=== PATIENT | female | born 1930 | race Asian ===

== ENCOUNTER 2016-12-30 16:35 | Emergency (ER) | payer OTHER ==
[~2016-12-30] VITALS: Ht 149.9 cm; Wt 44.3 kg
[2016-12-30] MEDS ORDERED: SODIUM CHLORIDE 0.9% 500ML 500 ML IV STA ×3 (16:37→21:55)
[2016-12-30] MEDS ORDERED: ONDANSETRON INJ 2 MG/ML 2 ML VIAL IV STA (16:38)
[2016-12-30] MEDS ORDERED: MoRPHine SULFATE 2 MG/ML CARP IV STA (16:38)
[2016-12-30 16:40] VITALS: TEMP 36.4; O2SAT 96; Ht 149.9 cm; Wt 44.3 kg
--- NOTE | 2016-12-30 16:43 | EMERGENCY ROOM VISIT NOTE ---
History Report prepared by Reilly: Tatiana Araya Under the Supervision of: Dr. Wallace Almeida M.D. First contact with patient: 16:20 Chief Complaint: ABDOMINAL PAIN Stated Complaint: N History of Present Illness The patient is a 86 year old female who presents to the Emergency Room with complaints of persistent abdominal pain since 1529 this afternoon. The patient was referred to the surgical center for a liver biopsy today by Dr. Chelsea Hollis, [facility]. The biopsy was scheduled for 1529. After she got back from the procedure, she complained to the surgical center staff of lower abdominal pain, rating her discomfort as an 8/10 in severity. She was also diaphoretic and hypertensive. The only medication the patient received before the procedure was local Lidocaine. Nursing staff reports she has a history of diabetes and does not take daily blood thinners. Source of History: patient, family, nursing staff Onset: 1529 today Position: abdomen Symptom Intensity: 8/10 Timing: other (persistent) Associated Symptoms: + diaphoresis Review of Systems See HPI for pertinent positives & negatives. A total of 10 systems reviewed and were otherwise negative. Past Medical & Surgical Medical Problems: (1) Diabetes mellitus Social History Smoking Status: Never Smoker Alcohol Use: none Drug Use: none Marital Status: Housing Status: lives with family Occupation Status: retired Current/Historical Medications Scheduled Levothyroxine Sodium (Synthroid), 25 MCG PO QAM Allergies Coded Allergies: No Known Allergies (Unverified , NONE, 12/30/16) Physical Exam Vital Signs Date Time Temp Pulse Resp B/P (MAP) Pulse Ox O2 Delivery O2 Flow Rate FiO2 12/31/16 00:15 91 21 129/65 100 12/30/16 22:36 90 20 129/62 100 Nasal Cannula 2.0 12/30/16 21:58 92 20 129/63 100 Room Air 12/30/16 21:31 90 20 126/59 99 Room Air 12/30/16 20:58 88 20 108/57 99 Nasal Cannula 3.0 12/30/16 20:29 90 20 117/53 100 Nasal Cannula 3.0 12/30/16 20:02 89 20 107/50 96 Nasal Cannula 3.0 12/30/16 19:34 84 20 112/53 100 Room Air 12/30/16 18:13 92 20 122/60 99 Nasal Cannula 3.0 12/30/16 17:57 84 18 144/62 100 Room Air 12/30/16 17:05 95 18 140/66 96 Nasal Cannula 3.0 12/30/16 16:40 36.4 90 20 108/56 89 Room Air 12/30/16 16:40 96 Nasal Cannula 12/30/16 16:40 90 Physical Exam GENERAL: Patient is a pale and cachectic in appearance 86 year old female. HEAD: Normocephalic atraumatic EYES: Ocular movements intact pupils equal and react to light OROPHARYNX mucous membranes are moist no exudates present no erythema or edema present NECK: Supple no nuchal rigidity CHEST: Good equal expansion LUNGS: Clear and equal to auscultation CARDIAC: Normal S1 and S2 ABDOMEN: Soft, diffusely tender, no guarding BACK: No CVA tenderness EXTREMITIES: No pain upon palpation normal muscle strength in all groups no clubbing cyanosis or edema NEURO: Patient is following commands is answering questions appropriately. Alert and oriented x3 Cranial Nerves 2-12 grossly intact Medical Decision & Procedures ER Provider Diagnostic Interpretation: Radiology results as stated below per my review and radiologist interpretation: ABD/PELVIS IV CONTRAST ONLY CT DOSE: 261.22 mGy.cm HISTORY: Pain Pt c/o diffuse abd pain s/p biopsy TECHNIQUE: Multiaxial CT images of the abdomen and pelvis were performed following the use of intravenous contrast. A dose lowering technique was utilized adhering to the principles of ALARA. COMPARISON STUDY: 12/08/2016 outside institution FINDINGS: Basilar pulmonary nodularity considered stable. Mild bibasilar atelectatic change. Diffuse hepatic metastatic disease. This is similar as compared to the prior study. Small linear focus of diminished density resembling a small focal laceration lateral right hepatic lobe transaxial image 21. This is not identified on the prior study and potentially relates to the prior biopsy site. The graft moderate amount of blood surrounding the liver with blood extending to the right paracolic gutter, mesentery, with significant fluid and/or blood within the pelvic cul-de-sac. This presumably represents active hemorrhage from the biopsy site. Bowel pattern again is nonobstructive. Bladder is midline. IMPRESSION: 1. Interval development of right perihepatic ascites/blood postbiopsy with moderate blood/fluid within the pelvic cul-de-sac and mid mesentery. 2. This change potentially is associated with a small linear capsular defect transaxial image 22 and 21 of the peripheral right hepatic lobe. This appears to relate to a focal hepatic laceration. 3. It is possible this linear defect which was not present on the prior study is related to the biopsy procedure. 4. This report was phoned to the emergency room 5. Diffuse metastatic disease unchanged The above report was generated using voice recognition software. It may contain grammatical, syntax or spelling errors. Electronically signed by: Shaila Morel M.D. 12/30/2016 5:14 PM CHEST ONE VIEW PORTABLE CLINICAL HISTORY: Sepsis dyspnea COMPARISON STUDY: No previous studies for comparison. FINDINGS: Mild emphysematous change. Minimal apical fibrotic change considered chronic. No focal infiltrate. No evidence pneumothorax. IMPRESSION: Mild emphysematous change. No acute process. The above report was generated using voice recognition software. It may contain grammatical, syntax or spelling errors. Electronically signed by: Shaila Morel M.D. 12/30/2016 5:22 PM Laboratory Results 12/30/16 22:25 Red Blood Count 2.91, Mean Corpuscular Volume 93.5, Mean Corpuscular Hemoglobin 29.6, Mean Corpuscular Hemoglobin Concent 31.6, Mean Platelet Volume 9.0, Neutrophils (%) (Auto) 71.9, Lymphocytes (%) (Auto) 20.0, Monocytes (%) (Auto) 7.1, Eosinophils (%) (Auto) 0.4, Basophils (%) (Auto) 0.4, Neutrophils # (Auto) 4.08, Lymphocytes # (Auto) 1.13, Monocytes # (Auto) 0.40, Eosinophils # (Auto) 0.02, Basophils # (Auto) 0.02 12/30/16 17:32 Test 12/30/16 16:52 12/30/16 17:32 12/30/16 22:25 12/30/16 22:30 Bedside Lactic Acid Venous 6.41 mmol/L (0.90-1.70) Prothrombin Time 11.5 SECONDS (9.0-12.0) Prothromb Time International Ratio 1.1 (0.9-1.1) Activated Partial Thromboplast Time 26.2 SECONDS (21.0-31.0) Partial Thromboplastin Ratio 1.0 Est Creatinine Clear Calc Drug Dose 33.6 ml/min Estimated GFR () 72.9 Estimated GFR (Non- 62.9 BUN/Creatinine Ratio 18.2 (10-20) Lactic Acid Level 5.3 mmol/L (0.4-2.0) Calcium Level 8.6 mg/dl (8.5-10.1) Total Bilirubin 0.5 mg/dl (0.2-1) Aspartate Amino Transf (AST/SGOT) 69 U/L (15-37) Alanine Aminotransferase (ALT/SGPT) 18 U/L (12-78) Alkaline Phosphatase 204 U/L (45-117) Total Creatine Kinase 73 U/L (26-192) Creatine Kinase MB 0.8 ng/ml (0.5-3.6) Creatine Kinase MB Ratio 1.1 (0-3.0) Troponin I 0.015 ng/ml (0-0.045) Total Protein 6.5 gm/dl (6.4-8.2) Albumin 2.4 gm/dl (3.4-5.0) Globulin 4.1 gm/dl (2.5-4.0) Albumin/Globulin Ratio 0.6 (0.9-2) White Blood Count 5.66 K/uL (4.8-10.8) Red Blood Count 2.91 M/uL (4.2-5.4) Hemoglobin 8.6 g/dL (12.0-16.0) Hematocrit 27.2 % (37-47) Mean Corpuscular Volume 93.5 fL (80-100) Mean Corpuscular Hemoglobin 29.6 pg (25-34) Mean Corpuscular Hemoglobin Concent 31.6 g/dl (32-36) Platelet Count 268 K/uL (130-400) Mean Platelet Volume 9.0 fL (7.4-10.4) Neutrophils (%) (Auto) 71.9 % Lymphocytes (%) (Auto) 20.0 % Monocytes (%) (Auto) 7.1 % Eosinophils (%) (Auto) 0.4 % Basophils (%) (Auto) 0.4 % Neutrophils # (Auto) 4.08 K/uL (1.4-6.5) Lymphocytes # (Auto) 1.13 K/uL (1.2-3.4) Monocytes # (Auto) 0.40 K/uL (0.11-0.59) Eosinophils # (Auto) 0.02 K/uL (0-0.5) Basophils # (Auto) 0.02 K/uL (0-0.2) RDW Standard Deviation 51.9 fL (36.4-46.3) RDW Coefficient of Variation 15.3 % (11.5-14.5) Immature Granulocyte % (Auto) 0.2 % Immature Granulocyte # (Auto) 0.01 K/uL (0.00-0.02) Red Blood Cell Morphology Unremarkable Bedside Hemoglobin 8.8 g/dl (12.0-16.0) Bedside Hematocrit 26 % (37-47) Bedside Sodium 136 mEq/L (135-144) Bedside Potassium 4.9 mEq/L (3.3-5.0) Bedside Chloride 102 mEq/L (101-112) Bedside Total CO2 22 mEq/l (24-31) Anion Gap 17.0 mmol/L (16-25) Bedside Blood Urea Nitrogen 14 mg/dl (7-18) Bedside Creatinine 0.7 mg/dl (0.6-1.3) Bedside Glucose (other) 87 mg/dl (70-99) Bedside Ionized Calcium ([place]) 1.16 mmol/l (1.12-1.32) Labs reviewed by ED physician. Medications Administered Medications (Trade) Dose Ordered Sig/Romie Route Start Time Stop Time Status Last Admin Dose Admin Sodium Chloride 500 ml @ 999 mls/hr Q31M STAT IV 12/30/16 16:37 12/30/16 17:07 DC 12/30/16 17:07 999 MLS/HR Sodium Chloride 500 ml @ 999 mls/hr Q31M STAT IV 12/30/16 20:53 12/30/16 21:23 DC 12/30/16 20:55 999 MLS/HR Sodium Chloride 500 ml @ 999 mls/hr Q31M STAT IV 12/30/16 21:55 12/30/16 22:25 DC 12/30/16 22:36 999 MLS/HR Sodium Chloride 1,000 ml @ 125 mls/hr Q8H STAT IV 12/30/16 22:19 12/31/16 02:51 DC 12/30/16 22:36 125 MLS/HR ECG Indication: abdominal pain Rate (beats per minute): 89 Rhythm: normal sinus Findings: no acute ischemic change, no ectopy ED Course 1634: Past medical records reviewed. The patient was evaluated in room A12. A complete history and physical examination was performed. 1637: NSS 500 ml @ 999 mls/hr IV. 1638: Zofran 4 mg IV, Morphine Sulfate 2 mg IV. 1640: A bedside ultrasound shows free fluid in the abdomen. 1712: I discussed the patients case with Dr. Morel, [facility] Radiology. There is a 1 cm laceration to the liver seen on CT scan and free fluid in the abdomen. 1713: I updated the patients family on her current condition and radiology results. 1715: I discussed the patients case with Dr. Noe, [facility] General Surgery. He recommends the patient be further evaluated at a tertiary care center. 1716: I spoke with the patients family. I discussed the need to transfer her to a tertiary care center for further evaluation and management. They are requesting a few minutes to decide where to have the patient evaluated. 1724: I spoke to the patients family again. They have chosen [facility] for further treatment and evaluation. 1744: The ER financial secretary informed me [facility] does not have interventional radiology which is needed to handle the patients case. I will discuss other options with the patients family. 1747: The patients family has decided on [facility]. 1750: The patients family has changed their mind to [facility]. 1752: The ED Dermatology Sales Representative informed me [facility] may be able to care for the patient. 1754: I discussed the patients case with Dr. Stover, Trauma Surgery at [facility]. He states because she is stable, he recommends she be evaluated by the hospital medicine team and he will consult on her case. 1755: Her BP is 140/66. Pulse is 85. 1801: I discussed the patients case with Dr. Quinn, [facility] Hospitalist. The patient has been accepted as a transfer via helicopter and will be further evaluated. 1812: I have updated the patients family on her acceptance at [facility]. They are aware of the plan and agreeable to transfer. 1845: The ED financial secretary informed me [facility] does not currently have a bed available for the patient. They will try to rearrange some other patients to find her a bed. 2213: I discussed the patients case with Dr. Quinn, [facility] Trauma Surgery. There is a bed available now in the ICU. 2320: I updated the patients family. I discussed my recommendation we fly the patient to [facility]. Her family has declined helicopter transport at this time. 2330: The ED financial secretary informed me [facility] will be here in 45 minutes to filler picker the patient. Medical Decision Prior records/ancillary studies reviewed. Triage Nursing notes reviewed. The patient's history was concerning for traumatic injury Differential diagnosis: Etiologies such as fracture, dislocation, intra-abdominal, pneumothorax, intrathoracic , intracranial, neurologic, as well as other traumatic pathologies were entertained. This is an 86-year-old female who presents emergency department complaining of abdominal pain and hypotension after procedure. A FAST exam was performed in the emergency department which was concerning for intra-abdominal fluid. Based on this finding the patient was immediate was sent for CAT scan. CAT scan is concerning for a laceration to the liver as well as intra-abdominal fluid. The patient's hemoglobin is actually stable however type and screen was obtained. I discussed the case with surgery who recommended that the patient be transferred to a tertiary care center. I recommended [facility] to the family however they wanted to go to [facility] after much family debate. I first contacted [facility] who was not willing to accept the patient. I then again recommended [facility] to the family however after further family discussion the family wished to go to [facility]. While we're waiting for call back from [facility], [facility] called back and the trauma surgeon readily accepted the patient. I then discussed the patient with the ICU and came back and relayed this to the family. I again stressed however that there were no beds available as the patient may in the emergency department for some time. For this reason the patient was frequently reassessed in the emergency department for close to 6 hours. At the 6 hour shaila a repeat hemoglobin was drawn. I believe that this is within normal limits after the patient received multiple boluses of fluid. After sometime [facility] did acquire a bed and I recommended that the patient be flown down however the patient is again refusing. Medication Reconcilliation Current Medication List: was personally reviewed by me Blood Pressure Screening Patient's blood pressure: Low blood pressure Low blood pressure is believed to be situational. Consults Time Called: 1707 Consulting Physician: Dr. Noe, [facility] Surgery Returned Call: 1715 I discussed the patients case with Dr. Noe, [facility] General Surgery. He recommends the patient be further evaluated at a tertiary care center. Additional Consults: Time Called: 1800 Consulted Physician: Dr. Quinn, [facility] Hospitalist Returned Call: 1801 Additional Comments: I discussed the patients case with Dr. Quinn, [facility] Hospitalist. The patient has been accepted as a transfer via helicopter and will be further evaluated. Time Called: 1750 Consulted Physician: Dr. Stover, [facility] Trauma Surgery Returned Call: 1754 Additional Comments: I discussed the patients case with Dr. Stover, Trauma Surgery at [facility]. He states because she is stable, he recommends she be evaluated by the hospital medicine team and he will consult on her case. Impression Primary Impression: Intra-abdominal fluid Critical Care I have personally spent greater than 90 minutes of critical care time in the direct management of this patient. This includes bedside care, interpretation of diagnostic studies, and testing, discussion with consultants, patient, and family members, and other required patient management activities. This 90 minutes is in excess of all separately billable procedures. Scribe Attestation The scribe's documentation has been prepared under my direction and personally reviewed by me in its entirety. I confirm that the note above accurately reflects all work, treatment, procedures, and medical decision making performed by me. Departure Information Dispostion Transfer Acute Care Facility (The patient has been accepted as a transfer via helicopter to [facility]) Referrals Chelsea Hollis M.D. (PCP) Patient Instructions My [facility] Problem Qualifiers Primary Impression: Intra-abdominal fluid Ascites type: other type Qualified Codes: R18.8 - Other ascites
[2016-12-30] MEDS ORDERED: OPTIRAY 320 IV PRN (16:45)
[2016-12-30 17:04] LABS: ISTAT CREATININE 0.9 mg/dl (0.6-1.3); ISTAT HEMOGLOBIN 10.2 g/dl (12.0-16.0); ISTAT IONIZED CALCIUM 1.19 mmol/l (1.12-1.32)
--- NOTE | 2016-12-30 17:15 | DIAGNOSTIC IMAGING REPORT ---
ABD/PELVIS IV CONTRAST ONLY CT DOSE: 261.22 mGy.cm HISTORY: Pain Pt c/o diffuse abd pain s/p biopsy TECHNIQUE: Multiaxial CT images of the abdomen and pelvis were performed following the use of intravenous contrast. A dose lowering technique was utilized adhering to the principles of ALARA. COMPARISON STUDY: 12/08/2016 outside institution FINDINGS: Basilar pulmonary nodularity considered stable. Mild bibasilar atelectatic change. Diffuse hepatic metastatic disease. This is similar as compared to the prior study. Small linear focus of diminished density resembling a small focal laceration lateral right hepatic lobe transaxial image 21. This is not identified on the prior study and potentially relates to the prior biopsy site. The graft moderate amount of blood surrounding the liver with blood extending to the right paracolic gutter, mesentery, with significant fluid and/or blood within the pelvic cul-de-sac. This presumably represents active hemorrhage from the biopsy site. Bowel pattern again is nonobstructive. Bladder is midline. IMPRESSION: 1. Interval development of right perihepatic ascites/blood postbiopsy with moderate blood/fluid within the pelvic cul-de-sac and mid mesentery. 2. This change potentially is associated with a small linear capsular defect transaxial image 22 and 21 of the peripheral right hepatic lobe. This appears to relate to a focal hepatic laceration. 3. It is possible this linear defect which was not present on the prior study is related to the biopsy procedure. 4. This report was phoned to the emergency room 4. Diffuse metastatic disease unchanged The above report was generated using voice recognition software. It may contain grammatical, syntax or spelling errors. Electronically signed by: Jimmy Morel M.D. 12/30/2016 5:14 PM Dictated Date/Time: 12/30/2016 5:00 PM
--- NOTE | 2016-12-30 17:23 | DIAGNOSTIC IMAGING REPORT ---
CHEST ONE VIEW PORTABLE CLINICAL HISTORY: Sepsis dyspnea COMPARISON STUDY: No previous studies for comparison. FINDINGS: Mild emphysematous change. Minimal apical fibrotic change considered chronic. No focal infiltrate. No evidence pneumothorax. IMPRESSION: Mild emphysematous change. No acute process. The above report was generated using voice recognition software. It may contain grammatical, syntax or spelling errors. Electronically signed by: Jimmy Morel M.D. 12/30/2016 5:22 PM Dictated Date/Time: 12/30/2016 5:21 PM
[2016-12-30 17:43] LABS: BASO % 0.4 %; BASO ABS # 0.02 K/uL (0-0.2); COMPLETE YES; EOS % 1.6 %; HEMATOCRIT 29.2 % (37-47); IG% 0.4 %; LYMPH % 19.5 %; MEAN CELL VOLUME 93.9 fL (80-100); MEAN CORPUSCULAR HEMOGLOBIN 30.2 pg (25-34); MEAN CORPUSCULAR HGB CONC 32.2 g/dl (32-36); NEUT % 71.1 %; PLATELET COUNT 284 K/uL (130-400); RED BLOOD COUNT 3.11 M/uL (4.2-5.4); WHITE BLOOD COUNT 5.12 K/uL (4.8-10.8)
[2016-12-30 17:55] LABS: INR 1.1 (0.9-1.1); PROTHROMBIN TIME (PATIENT) 11.5 SECONDS (9.0-12.0)
[2016-12-30] MEDS ORDERED: SYN25 PO (18:05)
[2016-12-30 18:10] LABS: BUN/CREATININE RATIO 18.2 (10-20); CALCIUM 8.6 mg/dl (8.5-10.1); CREATININE 0.85 mg/dl (0.60-1.20); POTASSIUM 4.6 mmol/L (3.5-5.1)
[2016-12-30 18:15] LABS: ALB/GLOB RATIO 0.6 (0.9-2); CKMB/CK RATIO 1.1 (0-3.0)
[2016-12-30] MEDS ORDERED: SODIUM CHLORIDE 0.9% 1000ML 1,000 ML IV STA (22:19)
[2016-12-30 22:39] LABS: BASO % 0.4 %; BASO ABS # 0.02 K/uL (0-0.2); EOS % 0.4 %; HEMATOCRIT 27.2 % (37-47); IG% 0.2 %; LYMPH ABS # 1.13 K/uL (1.2-3.4); MEAN CELL VOLUME 93.5 fL (80-100); MEAN CORPUSCULAR HEMOGLOBIN 29.6 pg (25-34); MEAN CORPUSCULAR HGB CONC 31.6 g/dl (32-36); MONO % 7.1 %; NEUT % 71.9 %; PLATELET COUNT 268 K/uL (130-400); RED BLOOD COUNT 2.91 M/uL (4.2-5.4); WHITE BLOOD COUNT 5.66 K/uL (4.8-10.8)
[2016-12-30 22:43] LABS: ISTAT CREATININE 0.7 mg/dl (0.6-1.3); ISTAT HEMOGLOBIN 8.8 g/dl (12.0-16.0); ISTAT IONIZED CALCIUM 1.16 mmol/l (1.12-1.32)
[2016-12-30 23:08] LABS: COMPLETE YES
[2016-12-31 00:15] VITALS: BP 129/65; PULSE 91; O2SAT 100
== END 2016-12-31 00:15 | disposition short-term general hospital (02) ==
LOC: C.EDA 16:35
DX: R18.8 Other ascites (principal); E11.9 Type 2 diabetes mellitus without complications; Z98.890 Other specified postprocedural states

== ENCOUNTER → 2016-12-30 | Day surgery (SDC) | payer OTHER ==
[~2016-12-30] VITALS: Ht 149.9 cm; Wt 40.0 kg
[~2016-12-30] MED LIST: ALPOPS1510; BIMA0.038; BP MED; CHOLESTROL MED; CSPOPS; DIABETIC MED; FINA5TAB PO; FLM4 PO; GFNSR600 PO; LSXUNK; NITR1CAP33 PO; SCOP1.5D TD; SYN25 PO
[2016-12-30 10:30] VITALS: BP 132/68; PULSE 93; TEMP 36.8; O2SAT 96; Ht 149.9 cm; Wt 40.0 kg
[2016-12-30 12:22] LABS: HEMATOCRIT 31.1 % (37-47); MEAN CELL VOLUME 93.7 fL (80-100); MEAN CORPUSCULAR HEMOGLOBIN 30.7 pg (25-34); PLATELET COUNT 285 K/uL (130-400); RED BLOOD COUNT 3.32 M/uL (4.2-5.4); WHITE BLOOD COUNT 4.77 K/uL (4.8-10.8)
[2016-12-30 12:23] LABS: MEAN CORPUSCULAR HGB CONC 32.8 g/dl (32-36)
[2016-12-30 12:31] LABS: PARTIAL THROMBOPLASTIN RATIO 1.1
--- NOTE | 2016-12-30 15:45 | Discharge Instructions ---
Discharge Instructions Procedure Procedure Date: Dec 30, 2016. Reason for visit: Loss Of Weight; Abd Pain; R/O Liver Malignancy. Discharge Discharge Date: Dec 30, 2016. Discharge Diagnosis: Same Instructions Activity Recommendations: 1 Day-May resume regular activity Return to School/Work: no limitations Recommended Home Diet: Resume Previous Diet Provider Instructions: ACTIVITY RECOMMENDATIONS: * Rest today. * Resume regular activity in one day. MEDICATIONS: * May take Tylenol or Ibuprofen as needed for pain. DIET: * Resume previous diet. SPECIAL CARE INSTRUCTIONS: Call your doctor if: * Temperature above 101 degrees F. * Pain not relieved by pain medicine ordered. * Increased drainage or redness from incision. * Increasing chest pain or shortness of breath. * Notify your doctor with any questions or concerns. * If you have specific questions or concerns for Radiology, please call us at . FOLLOW UP VISIT: Follow-up with Referring Physician as scheduled. Allergies Coded Allergies: No Known Allergies (Unverified , NONE, 12/30/16) Alexis London Recommendations: Call your doctor if: * Temperature above 101 degrees * Pain not relieved by pain medicine ordered * There is increased drainage or redness from any incision * You have any unanswered questions or concerns. Your Doctors Instructions noted above were prepared by provider Bhargav Crystal. Patient Signature Section: Patient Instructions Signature Page Aggie Wilhelm Patient (or Guardian) Signature/Date: I have read and understand the instructions given to me by my caregivers. Caregiver/RN/Doctor Signature/Date: The above-named patient and/or guardian has received patient instructions on this date. + Original Patient Signature Page (only) stays with chart. Please make copy for patient.
[2016-12-30 15:46] VITALS: BP_SYST 81; BP_SYST 95; BP_DIAS 47; BP_DIAS 49; PULSE 75; TEMP 36.5; O2SAT 97
[2016-12-30 16:15] VITALS: BP 117/55; PULSE 85; O2SAT 94
--- NOTE | 2016-12-30 16:25 | Procedure Note ---
Procedure Note Date of Service Dec 30, 2016. Procedure Note Following Liver biopsy which demonstrated no immediate post procedure complication the patient was transferred to same day surgery. Mary Lou, the patient 's nurse called me and stated that the patient had pelvic pain and hypotension. I evaluated the patient and she complained of central pelvic pain in the region of the urinary bladder. Her BP was 117 systolic and daughter stated that it is usually in the 130's. She also stated that she hasn't eaten or drank since last evening in preparation for the procedure today. I discussed the patient with Dr. Almeida from the ED and the patient was then transferred to the ED.
--- NOTE | 2016-12-30 17:24 | DIAGNOSTIC IMAGING REPORT ---
GUIDANCE NEEDLE PLACEMENT CLINICAL HISTORY: Multiple hepatic lesions concerning for metastasis. COMPARISON STUDY: CT abdomen and pelvis 12/08/2016. PROCEDURE: The risks, benefits, and alternatives to the procedure were discussed with the patient. Written informed consent was obtained. The patient was placed supine in ultrasound, and the large heterogeneous echogenic mass of the right hepatic lobe was localized by ultrasound and selected for fine needle aspiration using an intercostal approach. The right upper abdomen was prepped and draped in the usual sterile fashion. The nodule was aspirated under ultrasound guidance with 2 passes utilizing 22-gauge Lanette needle. Pathology deemed that the samples were not adequate and a second large echogenic heterogeneous mass within the right hepatic lobe was targeted via an intercostal approach. The patient was taking large breaths throughout the study which made the procedure somewhat difficult. The specimens were then reviewed by the pathologist in real-time and deemed adequate for diagnosis. The patient tolerated the procedure well and left the department in satisfactory condition. IMPRESSION: Completed fine-needle aspiration of a right hepatic lobe mass as above. The above report was generated using voice recognition software. It may contain grammatical, syntax or spelling errors. Electronically signed by: Lauro Crystal M.D. 12/30/2016 5:23 PM Dictated Date/Time: 12/30/2016 5:15 PM
== END | disposition home or self-care (01) ==
LOC: MERGE 12-10 13:45 → C.ACU 10:05
PROVIDERS: ATTEND Internal Medicine
DX: R93.2 Abnormal findings on diagnostic imaging of liver and biliary tract (principal); R97.0 Elevated carcinoembryonic antigen [CEA]; R94.5 Abnormal results of liver function studies; C22.8 Malignant neoplasm of liver, primary, unspecified as to type; R18.8 Other ascites; E11.9 Type 2 diabetes mellitus without complications; Z98.890 Other specified postprocedural states